=== PATIENT | female | born 1960 | race Caucasian/White ===

== ENCOUNTER → 2016-09-07 | Outpatient (CLI) | payer OTHER ==
[~2016-09-07] MED LIST: ACETAMINOPHEN325 MG PO; ALBUTEROL HFA60 DOSE IN; ALBUTEROL SUL0.083 % IN; HYDROCHLOROTHIA25 MG PO; IBUPROFEN600 MG PO; OMEPRAZOLE40 MG PO; OXYCODONE/ACETA1 TA1 PO; PULMICORT FLEX90 MCG IN; SYMBICORT1 AE1 IN; TUDORZA PR400 MG/ACT IN; TURMERIC CURCU500 MG PO; VITAMIN C500 M1 PO; [UNRECOGNIZED DRUG - OTHER] IN; [UNRECOGNIZED DRUG - OTHER] IN; [UNRECOGNIZED DRUG - OTHER] PO
--- NOTE | 2016-09-07 12:13 | DIAGNOSTIC IMAGING REPORT ---
PROCEDURE: XR CHEST 2 VIEW INDICATION: Cough, initial encounter TECHNIQUE: PA and lateral view. COMPARISON: None. FINDINGS: Lungs are clear. Left pericardial fat pad. Cardiovascular structures are normal. Old mild T12 compression fracture. Mild degenerative changes of the spine. IMPRESSION: 1. Negative chest.
--- OUTSIDE RECORDS SUMMARY | 2016-09-08 13:03 | External Medical Summary Rpt | CCD ---
Author Author Roni Hand MD Organization Unknown Address Unknown Phone Unavailable Care Team Providers Care Operating Room Aide Name Role Phone Olga Ramos MD PCP Unavailable Olga Ramos MD Unavailable Unavailable Allergies, Adverse Reactions, Alerts Substance Reaction Severity Status Substance Type Unknown Medications Medicatio Instructi Dosage Effective Status Comments n ons Dates (start - stop) PARKING needed Active PERMIT RX temporary 17 - MISCELL for 6 MISCELL months Problems Condition Effective Dates Clinical Status (start - stop) Pre-op examination Procedures Procedure Date Pre Op Visit Results Test Date Measure Units Referen Abnorma Comment Name and ce l Flag s Time Range Unknown Advance Directives Directive Yes / No Effective Date File Name Unknown Encounters Encoun Practi Locati Reason Diagno Date Provid Care ter ce on (s) ses er Team Descri For Member ption Visit s [place] PRE-OP Pre-op Rhoda Referr e e RIGHT -2016 r [facility] TOTAL examin Stephe Provid HIP ation n. 328 er: Clinic Orth[facility] ARTHRO S Olga s, [address] Stilla Rachel S wale Miles (chief h Mariya, D, [address], [place]) [facility], [address] [facility], [address]. [address] [place] [id number] tel:[phone] ton, [phone] [facility] [id number] tel:[phone] tel:[phone] Family History Family Member Diagnosis Age At Onset Status Unknown Immunizations Vaccine Date Status Comments Unknown Payers Payer name Insurance type Covered green party Authorization(s ID ) Michelle ALSTON [id number] Social History Type Description Quantity Date Captured Alcohol Use beer & wine 1 drink weekly Details Caffeine Use coffee 1 cup per day Details Tobacco Use Ex-cigarette Status smoker Smoking Status Former smoker Vital Signs Nilesh Hei Yonathan BMI Pul Blo Tem Res Bod Hea BMI e / ght ght se od per pir y d Rat Pre atu josiah Marcus Cir per Joel e ssu re ry fac cum alban e: re Rat e kate til e Are enc e a e Aug. 223 35. 75 131 98. 16 2.1 -12 00 .00 99 /mi /71 4 F /mi 7 -20 in kg/ n n met 17/ lbs met mm[ er( 08: er( Hg] 2) 41: 2) 00 Chief Complaint And Reason For Visit Most recent encounter only, dated '09/07/2016 08:30'. PRE-OP RIGHT TOTAL HIP ARTHROPLASTY (chief complaint) Reason For Referral Reason For Referral surgery Plan Of Care Date Type Action Status Referral ordered Ordered:Chest; X-ray, chest, two views, frontal/lateral Appointment MARIA FERNANDA Parry RT DEREK Future Order: Hemoglobin A1c Ordered Lab Order ([id number]) Future Order: CBC w/diff Ordered Lab Order ([id number]) Future Order: PT/INR Ordered Lab Order ([id number]) Future Order: BMP ([id number]) Ordered Lab Order Future Order: UA with C&S if Ordered Lab Order ind ([id number]) Date Type Problem Goal Interve Status Start ntion Date Unknown. History Of Present Illness Encounter Date Complaint History Of Present Illness PRE-OP RIGHT TOTAL HIP ARTHROPLASTY Functional Status Encounter Date Functional Assessment Cognitive Assessment Unknown Medications Administered Medicatio Instructi Dosage Effective Status Comments n ons Dates (start - stop) Drug Treatment Unknown Instructions Date Instruction Additional Information Unknown
--- OUTSIDE RECORDS SUMMARY | 2016-09-08 13:03 | External Medical Summary Rpt | CCD ---
Author Author Roni Hand MD Organization Unknown Address Unknown Phone Unavailable Care Team Providers Care Assembler Bicycle Name Role Phone Olga Ramos MD PCP [...] Rhoda Referr e e RIGHT -2016 r [facility] TOTAL examin Stephe Provid HIP ation n. 328 er: Clinic Orthop ARTHRO S Olga s, [address] Stilla Rachel S wale Miles (chief h Mariya, D[address], [place]) [facility], [address] [facility], [address]. [address] [place] [id number] tel:[phone] ton, [phone] [facility] [id number] tel:[phone] tel:[phone] Family History Family Member Diagnosis Age At Onset Status Unknown Immunizations Vaccine Date Status Comments Unknown Payers Payer name Insurance type Covered libertarian Authorization(s ID ) Michelle ALSTON [id number] Social History Type Description Quantity Date Captured [...] Future Order: Hemoglobin A1c Ordered Lab Order ([id number]) Future Order: CBC w/diff Ordered Lab Order ([id number]) Future Order: PT/INR Ordered Lab Order ([id number]) Future Order: BMP ([id number]) Ordered Lab Order Future Order: UA with C&S if Ordered Lab Order ind ([id number]) Date Type Problem Goal Interve Status Start [...]
== END ==
LOC: RT SRH 09:30
DX: Z01.810 Encounter for preprocedural cardiovascular examination (principal); Z01.811 Encounter for preprocedural respiratory examination; Z01.812 Encounter for preprocedural laboratory examination
CPT/HCPCS: 90004; 90047; 91286; 94060; 95059

== ENCOUNTER 2016-09-27 16:03 | Inpatient (IN) | payer OTHER ==
--- NOTE | 2016-09-07 10:00 | HISTORY AND PHYSICAL ---
ADMITTED: 10/03/2016 CHIEF COMPLAINT: 1. Right hip pain HISTORY OF PRESENT ILLNESS: The patient, back in about 02/2015 or 03/2015, began feeling some clicking and pain in her right hip. 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 The patient will have the surgery on 10/03/2016, barring unforeseen complication or problem. She had the procedure described to her today , including where the incision would be, what bone would be removed, how we would go about doing the replacement, the risks of dislocation, of infection, with need for further surgery, including removal of components and IV antibiotic therapy for a time, of bleeding with need for blood transfusion, of anesthesia complications, and of failure of healing of the prosthesis. All were explained to her, and I explained if she had any redness, warmth, drainage from the wound afterwards, that she would need to contact us immediately and that she needed to avoid the position of flexion and internal rotation, and that we will treat her with a knee immobilizer for a time after the surgery to try and prevent that. She agrees and accepts. We will plan to do the surgery then in September, barring unforeseen complication or problem. All her questions were answered today. MEDICAL/SURGICAL HISTORY: The patient's past history is positive in that she does have COPD and asthma, which probably is secondary to smoking, although she says she quit smoking about 20 years ago. She still has some residual pulmonary effects. She suffers from hypertension. She has chronic fatigue syndrome. She also has GERD and has some problems with incontinence and also with osteoarthritis. The patient's surgical history is positive in that she has had 2 separate C-sections. MEDICATIONS: 1. Hydrocodone/acetaminophen combination that she takes on a p.r.n. basis for pain. 2. Mobic 15 mg a day. 3. Tudorza Pressair 400 mcg per actuation that she uses 1 puff q.12 hours. 4. She uses Symbicort inhaler 2 puffs twice a day, 160 mcg/4.5 mcg per actuation. 5. She takes omeprazole 10 mg 2 tabs daily. 6. Hydrochlorothiazide 1 daily. Unfortunately she does not give the dose there of that medication. 7. She also uses an albuterol inhaler 1 puff every 6 hours p.r.n. for shortness of breath. ALLERGIES: 1. SOCIAL HISTORY: FAMILY HISTORY: Positive in that she has a brother with pancreatic cancer and also thyroid disease. Her father suffered from diabetes mellitus and had lymphoma and hypertension. Mother suffered from diabetes, breast cancer, hypertension, and heart disease. REVIEW OF SYSTEMS: PHYSICAL EXAMINATION: VITAL SIGNS: Here in the clinic, her blood pressure 131/71, pulse 75, respirations 16, temperature 98.4. Her height is 66 inches and she is 223 pounds. HEENT: Head is normocephalic and atraumatic. Her eyes are clear. Her hearing is grossly normal. Mouth and posterior oropharynx are clear. She does have some missing teeth and has plates in place. The tongue is midline. NECK: Without jugular venous distention. HEART: Regular rate and rhythm without murmur. LUNGS: Clear to auscultation. ABDOMEN: Obese. EXTREMITIES: The hip, I will refer you to my previous notes for her hip exam, but she does have significant arthritic changes with [id number] contact and probable avascular necrosis seen on her MRI scan. IMPRESSION: 1. 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
[~2016-09-27] VITALS: Ht 165.1 cm; Wt 102.2 kg
[~2016-09-27 16:03] MED LIST changes: -ALBUTEROL SUL0.083 % IN; -OXYCODONE/ACETA1 TA1 PO; -PULMICORT FLEX90 MCG IN; -TUDORZA PR400 MG/ACT IN; -TURMERIC CURCU500 MG PO; -VITAMIN C500 M1 PO; -[UNRECOGNIZED DRUG - OTHER] IN; -[UNRECOGNIZED DRUG - OTHER] PO
[2016-09-28] MEDS ORDERED: ALBUTEROL SUL0.083 % IN (12:09)
[2016-09-28] MEDS ORDERED: PULMICORT FLEX90 MCG IN (12:10)
[2016-09-28] MEDS ORDERED: [UNRECOGNIZED DRUG - OTHER] IN (12:34)
[2016-09-28] MEDS ORDERED: TURMERIC CURCU500 MG PO (13:53)
[2016-09-28] MEDS ORDERED: IBUPROFEN600 MG PO (13:54)
[2016-09-28] MEDS ORDERED: [UNRECOGNIZED DRUG - OTHER] PO (13:57)
[2016-09-28] MEDS ORDERED: VITAMIN C500 M1 PO (13:57)
[2016-09-28] MEDS ORDERED: TUDORZA PR400 MG/ACT IN (17:04)
[2016-10-03] VITALS (8 sets, daily range): BP systolic 121–170; BP diastolic 53–83
--- NOTE | 2016-10-03 10:14 | Postoperative Progress Note ---
Postop Progress Note Preoperate Diagnosis: Arthritis right hip Postoperative Diagnosis: Same Surgeon: Roni Hand MD Anesthesia: General ETT Findings: Arthritis right hip Procedure: Right DEREK Complications? No Condition: Stable EBL: 400cc Blood Administered: 0 Specimen(s) removed? Yes Specimen removed/disposition: Right femoral head Grafts or Implants? Yes Graft/Implant type: Right DEREK . (See nursing notes for details of grafts/implants)
--- NOTE | 2016-10-03 11:15 | DIAGNOSTIC IMAGING REPORT ---
PROCEDURE: XR HIP 2VW W W/O AP PELVIS-RT INDICATION: post op DEREK TECHNIQUE: AP view of the pelvis and hips with lateral view of the right hip. COMPARISON: Hip films 11/24/2014 FINDINGS: Right HIP: Right total hip replacement. Anatomic alignment. PELVIS: Osseous pelvis is normal. IMPRESSION: 1. Negative pelvis and right total hip replacement.
--- NOTE | 2016-10-03 11:27 | OPERATIVE REPORT ---
DATE OF SURGERY: 10/03/2016 SURGEON: EDWINA BRAND MD PREOPERATIVE DIAGNOSIS: 1. Arthritis of the right hip POSTOPERATIVE DIAGNOSIS: 1. Arthritis of the right hip PROCEDURE PERFORMED: 1. Operation proposed is right hip replacement, and the operation performed was right hip replacement ESTIMATED BLOOD LOSS: Less than 400 mL. COMPLICATIONS: None. PATHOLOGY SPECIMENS: Right femoral head. SURGICAL TECHNIQUE: The patient was taken to the operating room and given a general anesthetic. She was placed on her left side on the operating table. The right lower extremity, including the area about the hip and buttock, were all prepped and draped in the usual sterile fashion. She then had a slightly oblique posterolateral longitudinal incision made over the hip. This was carried down through subcutaneous tissue, and deep fascia was incised in line with its fibers and went down bluntly to the posterior aspect of the hip. The sciatic nerve was identified and was tagged with a Ennis drain and preserved. It was in perfect condition at the close of the procedure. I opened the posterior capsule and released the femoral attachment of the piriformis tendon, and the capsule was opened in a T-shaped fashion and tagged the tendon, as well as the superior and inferior limbs of the capsule. I put a tag suture on the femoral shaft, as far down as we could reach, and measured from there to the center of the femoral head and tried to duplicate that length at the conclusion of the procedure. We then dislocated the hip and resected the femoral head and neck and removed them. We then took out the labrum and some of the inferior portion of the capsule to expose the acetabulum and reamed in a sequential fashion up to a final 53 mm size. We then obtained the 54 mm 3-hole cup. We seated it in position and then drilled a single screw, using the supplied drill from the [employer] set, and measuring with the depth gauge and placing appropriate length of self-tapping screw, which was very secure and filled the cup very nicely. It actually was quite secure in position anyway, but with the screw it was even more secure. We then put the +[address] and used the Shopear cutter osteotome to osteotomize the remaining small portion of the lateral femoral neck. We used the canal finder to locate the canal of the femur and started sequentially broaching in a stepwise fashion up to a final #8 size, which was a near perfect fit. The patient then had a trial reduction with a +0, 36 mm diameter head, and she was very stable with that. I could not dislocate her at all in extension and in flexion. I could abduct her as much as her positioning would allow, flex her to 90 degrees and internally rotate her to 85 degrees before it finally would dislocate, but that was a little bit long; when we measured, it measured about 0.5 cm long. So we got the -3 head and used that, and with that we had a similar result. It was very stable. So we removed the trial components, placed the #8 standard offset femoral component into position. Tried again with the -3 head, measuring back to my original stay suture. With this, we had appropriate limb length. Reduced the hip, closed the capsule using a combination of interrupted and running #2 nonabsorbable braided suture. The piriformis tendon was repaired back in place with the same suture. The sciatic nerve was examined and found to be in perfect condition and the Ennis drain removed. The deep fascia was closed with a running #1 Vicryl suture and the subcutaneous layer with a running 2-0 Vicryl suture, and the skin with a running subcuticular 3-0 Polysorb suture. The patient was dressed with Xeroform and ABD pads. These were taped securely in place. She was rolled into the supine position and placed in a knee immobilizer. She was taken to the recovery room in stable condition.
[2016-10-04 01:58] VITALS: BP 133/66
[2016-10-04 07:40] VITALS: BP 119/66
--- NOTE | 2016-10-04 08:11 | Progress Note ---
Subjective General VSS Afebrile Hgb 11.6 FBS 111 WBC 15.4 No c/o except some mild nausea and moderate pain today. No SOB,wheezing, or congestion. Better this am. NMV intact. Minimal pedal edema. PT today.
[2016-10-04 10:05] VITALS: BP 127/55
[2016-10-04 14:15] VITALS: BP 135/66
[2016-10-04 17:45] VITALS: BP 127/61
[2016-10-04 22:26] VITALS: BP 126/65
[2016-10-05 01:48] VITALS: BP 146/77
[2016-10-05 06:51] VITALS: BP 122/58
--- NOTE | 2016-10-05 07:53 | Progress Note ---
Subjective General VSS Afebrile No c/o today. Moderate pain well controlled with Percocet. No GI upset or nausea today. Wants to go home DC home after PT today.
[2016-10-05] MEDS ORDERED: OXYCODONE/ACETA1 TA1 PO (07:58)
--- NOTE | 2016-10-05 08:00 | Provider's Discharge Care Plan ---
Problem, Goal, Plan Problem List 1. Arthritis of right hip
--- NOTE | 2016-10-05 08:00 | Provider's Discharge Care Plan ---
Problem, Goal, Plan Problem List 1. Arthritis of right hip
--- NOTE | 2016-10-05 08:39 | DISCHARGE SUMMARY ---
ADMIT DATE: 10/03/2016 DISCHARGE DATE: 10/05/2016 DISCHARGE DIAGNOSIS: 1. Arthritis of the hip. BRIEF HISTORY: The patient had had chronic right hip pain which was not relieved with any conservative treatment. The pain had gotten to the point where she was having difficulty walking, sleeping, and she wanted to have a hip replacement and was admitted for the same. HOSPITAL COURSE: The patient was admitted to the hospital on 10/03/2016 and underwent her surgery on the same day. Postoperatively, no serious complication. She did have some gastrointestinal upset and some nausea, but that resolved by the time of her discharge. She was doing well with physical therapy. She had no more gastrointestinal complaints. Was moving her toes without difficulty and her vital signs were stable. She was afebrile. DISCHARGE INSTRUCTIONS/MEDICATIONS: She was discharged home in stable condition on 10/05/2016 and she will use a walker for support. She can weightbear as tolerated. She will keep the incision clean and dry and covered. She has taken aspirin on a daily basis. Ordered Percocet that she could take 1 or 2 tabs every 4 hours as needed for pain, total #60 were prescribed and she will follow up in our office. She actually has an appointment in about 10 days. The computer would only allow me to put in 1 week or 2 weeks and I put down one week, but she accurately has an appointment for 10 days, which will be fine. Prognosis is good. Discharge status is home.
[2016-10-05 10:57] VITALS: BP 135/58
== END 2016-10-05 13:35 | disposition home or self-care (01) | DRG 470 ==
LOC: SCU SRH 10-03 05:47 → U SRH 10-03 07:30 → ACUTE2 SRH 10-03 11:58
PROVIDERS: ADMIT Orthopaedic Surgery
PROC: 0SR90JA Replacement of Right Hip Joint with Synthetic Substitute, Uncemented, Open Approach (ICD-10-PCS; principal; 2016-10-03 07:30)
DX: M16.11 Unilateral primary osteoarthritis, right hip (principal); R11.0 Nausea; I10 Essential (primary) hypertension; J44.9 Chronic obstructive pulmonary disease, unspecified; Z87.891 Personal history of nicotine dependence; R53.82 Chronic fatigue, unspecified; K21.9 Gastro-esophageal reflux disease without esophagitis